=== PATIENT | male | born 1990 | race African-American/Black ===

== ENCOUNTER 2016-09-08 20:40 | Emergency (ER) | payer OTHER ==
[2016-09-08 20:48] VITALS: BP 148/77; PULSE 99; TEMP 98.5; BMI 27.1
--- NOTE | 2016-09-08 21:36 | PDOC ---
History of Present Illness - General Chief Complaint: RX Refill Stated Complaint: RX REFILL Time Seen by Provider: 09/08/16 21:19 History Source: Patient Exam Limitations: No Limitations - History of Present Illness Initial Comments: 09/08/16 21:31 26 yr male with c/o "I ran out of my BP meds for 3 days recently moved from [facility]". Pt denies headache or dizzyness or chest pain . Past History - Past Medical History Allergies/Adverse Reactions: Allergies Allergy/AdvReac Type Severity Reaction Status Date / Time No Known Allergies Allergy Verified 09/08/16 20:45 Home Medications: Ambulatory Orders Amlodipine Besylate 10 mg PO DAILY #14 tablet 09/08/16 Amlodipine/Atorvastatin [Amlodipine-Atorvast 10-10 mg] 10 mg PO ASDIR 09/08/16 Hydralazine HCl 10 mg PO ASDIR 09/08/16 Hydralazine HCl 10 mg PO DAILY #14 tablet 09/08/16 Asthma: Yes Diabetes: Yes HTN: Yes Other medical history: sickle cell trait - Psycho/Social/Smoking Cessation Hx Suicidal Ideation: No Smoking Status: Yes Smoking History: Current every day smoker Number of Cigarettes Smoked Daily: 10 Information on smoking cessation initiated: No Review of Systems - Review of Systems Able to Perform ROS?: Yes Is the patient limited Spanish proficient: No Constitutional: No: Symptoms Reported HEENTM: No: Symptoms Reported Respiratory: No: Symptoms reported Cardiac (ROS): No: Symptoms Reported ABD/GI: No: Symptoms Reported : No: Symptoms Reported Musculoskeletal: No: Symptoms Reported Integumentary: No: Symptoms Reported *Physical Exam - Vital Signs Last Vital Signs Temp Pulse Resp BP Pulse Ox 98.5 F 99 H 18 148/77 100 09/08/16 20:45 09/08/16 20:45 09/08/16 20:45 09/08/16 20:45 09/08/16 20:45 - Physical Exam General Appearance: Yes: Nourished, Appropriately Dressed HEENT: positive: EOMI, VALENTE, Normal ENT Inspection, TMs Normal, Pharynx Normal Neck: positive: Supple. negative: Tender Respiratory/Chest: positive: Lungs Clear, Normal Breath Sounds Cardiovascular: positive: Regular Rhythm, Regular Rate Gastrointestinal/Abdominal: positive: Normal Bowel Sounds, Soft Extremity: positive: Normal Inspection, Normal Range of Motion Integumentary: positive: Normal Color, Dry, Warm Neurologic: positive: Fully Oriented, Alert, Normal Mood/Affect, Normal Response , Motor Strength 10/04 Medical Decision Making - Medical Decision Making 09/08/16 22:55 cc: ran out of BP meds for 3 days relocated to the area no headache or dizzyness no deficits or complaints will refill for 14 days pt to follow at [facility] pt understands to make apt tomorrow for follow up 09/08/16 22:57 *DC/Admit/Observation/Transfer Diagnosis at time of Disposition: Medication refill - Discharge Dispostion Disposition: HOME Condition at time of disposition: Good - Prescriptions Prescriptions: Amlodipine Besylate 10 mg PO DAILY #14 tablet Hydralazine HCl 10 mg PO DAILY #14 tablet - Referrals Referrals: [facility] [Provider Group] - Patient Instructions Additional Instructions: call the clinic tomorrow to set up appointment for primary care take your medication every day as directed Return to ER for any worsening symptoms
== END 2016-09-08 21:44 | disposition home or self-care (01) ==
LOC: JERFT 20:40
DX: I10 Essential (primary) hypertension (principal); F17.210 Nicotine dependence, cigarettes, uncomplicated
CPT/HCPCS: 99281-25

== ENCOUNTER 2018-09-15 07:48 | Emergency (ER) | payer OTHER ==
[2018-09-15 07:56] VITALS: BMI 29.2
--- NOTE | 2018-09-15 08:36 | PDOC ---
History of Present Illness - General Chief Complaint: Pain, Acute Stated Complaint: ABD PAIN S/P HERNIA REPAIR Time Seen by Provider: 09/15/18 08:08 History Source: Patient Exam Limitations: No Limitations Past History - Travel Traveled outside of the country in the last 30 days: No Close contact w/someone who was outside of country & ill: No - Past Medical History Allergies/Adverse Reactions: Allergies Allergy/AdvReac Type Severity Reaction Status Date / Time Penicillins Allergy Verified 09/15/18 07:52 Home Medications: Ambulatory Orders NK [No Known Home Medication] 09/15/18 Asthma: Yes COPD: No Diabetes: Yes HTN: Yes - Surgical History Abdominal Surgery: Yes - Immunization History Immunization Up to Date: Yes - Suicide/Smoking/Psychosocial Hx Smoking Status: Yes Smoking History: Current every day smoker Number of Cigarettes Smoked Daily: 10 Information on smoking cessation initiated: No Hx Alcohol Use: No Drug/Substance Use Hx: No Review of Systems - Review of Systems Able to Perform ROS?: Yes Comments:: 09/15/18 08:28 CONSTITUTIONAL: Absent: fever, chills, diaphoresis, generalized weakness, malaise, loss of appetite HEENT: Absent: rhinorrhea, nasal congestion, throat pain, throat swelling, difficulty swallowing, mouth swelling, ear pain, eye pain, visual Changes CARDIOVASCULAR: Absent: chest pain, loss of consciousness, palpitations, irregular heart rate, peripheral edema RESPIRATORY: Absent: cough, shortness of breath, dyspnea with exertion, orthopnea, wheezing, stridor, hemoptysis GASTROINTESTINAL: Present: abdominal pain, nausea Absent: abdominal distension, vomiting, diarrhea , constipation, melena, hematochezia GENITOURINARY: Absent: dysuria, frequency, urgency, hesitancy, hematuria, flank pain, genital pain MUSCULOSKELETAL: Absent: myalgia, arthralgia, joint swelling SKIN: Absent: rash, itching, pallor HEMATOLOGIC/IMMUNOLOGIC: Absent: easy bleeding, easy bruising, lymphadenopathy, frequent infections ENDOCRINE: Absent: unexplained weight gain, unexplained weight loss, heat intolerance, cold intolerance NEUROLOGIC: Absent: headache, focal weakness or paresthesias, dizziness, unsteady gait, seizure, mental status changes, bladder or bowel incontinence PSYCHIATRIC: Absent: anxiety, depression, suicidal or homicidal ideation, hallucinations. Is the patient limited Mohawk proficient: No *Physical Exam - Vital Signs Last Vital Signs Temp Pulse Resp BP Pulse Ox 97.8 F 68 18 128/87 97 09/15/18 07:52 09/15/18 07:52 09/15/18 07:52 09/15/18 07:52 09/15/18 07:52 - Physical Exam Comments: 09/15/18 08:28 GENERAL: Well developed, well nourished. Awake and alert. No acute distress. HEENT: Normocephalic, atraumatic. PERRLA, EOMI. No conjunctival pallor. Sclera are non- icteric. Moist mucous membranes. Oropharynx is clear. NECK: Supple. Full ROM. No JVD. Carotid pulses 2+ and symmetric, without bruits. No thyromegaly. No lymphadenopathy. CARDIOVASCULAR: Regular rate and rhythm. No murmurs, rubs, or gallops. Distal pulses are 2+ and symmetric. PULMONARY: No evidence of respiratory distress. Lungs clear to auscultation bilaterally. No wheezing, rales or rhonchi. ABDOMINAL: TTP of the LLQ, suprapubic area. Discomfort to the LUQ. Soft. Non-distended. No rebound or guarding. No organomegaly. Hyper active bowel sounds. MUSCULOSKELETAL Normal range of motion at all joints. No bony deformities or tenderness. No CVA tenderness. EXTREMITIES: No cyanosis. No clubbing. No edema. No calf tenderness. SKIN: Warm and dry. Normal capillary refill. No rashes. No jaundice. NEUROLOGICAL: Alert, awake, appropriate. Cranial nerves 2-12 intact. No deficits to light touch and temperature in face, upper extremities and lower extremities. No motor deficits in the in face, upper extremities and lower extremities. Normoreflexic in the upper and lower extremities. Normal speech. Toes are down- going bilaterally. Gait is normal without ataxia. PSYCHIATRIC: Cooperative. Good eye contact. Appropriate mood and affect. ED Treatment Course - LABORATORY CBC & Chemistry Diagram: 09/15/18 08:43 09/15/18 08:43 Medical Decision Making - Medical Decision Making 09/15/18 08:40 The patient is a 28-year-old male past medical history of hypertension, hernia repair in 2017 who presents to the emergency department today for lower abdominal pain. He states that he had an inguinal hernia and umbilical hernia repaired back in 2017 with mesh. He states that since the surgery he has had constant pain from the mesh. He states that when he bent over this morning he felt a sharp pain in his lower abdomen prompting him to come to the emergency department for treatment. He also states that recently he has had early satiety with associated nausea. Denies fevers, chills, vomiting, diarrhea, constipation , lightheadedness, weakness and dizziness. A/P: Abdominal pain DDX includes but is not limited to: Inguinal hernia, Mesh pain, diverticulitis, constipation. Less likely SBO On exam patient tender to palpation of the left lower quadrant, suprapubic area with associated discomfort in the left upper quadrant. No palpable hernia felt Given location of tenderness and history of surgery, we will obtain CTAP with IV contrast. Basic labs and urine ordered. IV fluids and IV Tylenol ordered for pain control. 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 CT of the abdomen shows no acute hernia, diverticulitis. No SBO. Incidental finding of a hemangioma on the left liver. Patient notified of results and told to follow up with outpatient GI doctor. Patient does not want any more medication at this time and states that he is going to follow-up with his surgeon today given the pain. I suspect this was due to his mesh Discharge home I discussed the physical exam findings, ancillary test results and final diagnoses with the patient. I answered all of the patient's questions. The patient was satisfied with the care received and felt comfortable with the discharge plan and treatment plan. The Patient agrees to follow up with the primary care physician/specialist within 24-72 hours. Return precautions were given. *DC/Admit/Observation/Transfer Diagnosis at time of Disposition: Abdominal pain Qualifiers: Abdominal location: left lower quadrant Qualified Code(s): R10.32 - Left lower quadrant pain - Discharge Dispostion Disposition: HOME Condition at time of disposition: Stable Decision to Admit order: No - Referrals Referrals: Rojas Delgado MD [Staff Physician] - - Patient Instructions Printed Discharge Instructions: DI for Abdominal Pain-Adult Additional Instructions: You were evaluated for your abdominal pain today Your CT scan did not show a new hernia. You had a hemangioma on your liver. This requires follow up with a software development intern (GI) Please follow up with your surgeon and a GI. A referral has been provided Return to the ED for any new or worsening symptoms - Post Discharge Activity Forms/Work/School Notes: Back to Work
[2018-09-15] MEDS ORDERED: ACETAMINOPHEN 1000 MG/100 ML VIAL (NON FORMULARY) IVPB ONE (08:38)
[2018-09-15] MEDS ORDERED: SODIUM CHLORIDE 1,000 ML IV STA (08:38)
[2018-09-15] MEDS ORDERED: ACETAMINOPHEN INJECTION 100 ML IVPB ONE (08:42)
[2018-09-15 09:08] LABS: BASO % 0.8 % (0-2.0); EOS % 2.7 % (0-4.5); HEMATOCRIT 42.5 % (35.4-49); HEMOGLOBIN 15.3 GM/dL (11.7-16.9); LYMPH % 48.3 % (8-40); MCH 32.5 pg (25.7-33.7); MCHC 36.1 g/dl (32.0-35.9); MEAN CELL VOLUME 90.2 fl (80-96); MEAN PLT VOLUME 8.4 fl (7.5-11.1); MONO % 10.5 % (3.8-10.2); NEUT % 37.7 % (42.8-82.8); PH,URINE 5.5 (5.0-8.0); PLATELET COUNT 229 K/MM3 (134-434); RBC 4.71 M/mm3 (4.00-5.60); RDW 14.5 % (11.9-15.9); URINE APPEARANCE CLEAR; URINE BILIRUBIN 1+ (NEGATIVE); URINE COLOR DK YELLOW; URINE GLUCOSE (UA) NEGATIVE (NEGATIVE); URINE KETONE TRACE (NEGATIVE); URINE LEUK ESTERASE NEGATIVE (NEGATIVE); URINE NITRITE NEGATIVE (NEGATIVE); URINE PROTEIN TRACE (NEGATIVE); WHITE BLOOD COUNT 8.9 K/mm3 (4.0-10.0)
[2018-09-15 09:24] LABS: INR 1.22 (0.83-1.09); PROTHROMBIN TIME (PATIENT) 14.4 SEC (9.7-13.0)
[2018-09-15 09:55] LABS: ALBUMIN 4.1 g/dl (3.4-5.0); ALK PHOS 99 U/L (45-117); ANION GAP 1 MMOL/L (8-16); BILIRUBIN,TOTAL 0.6 mg/dL (0.2-1); BLOOD UREA NITROGEN 18 mg/dL (7-18); CALCIUM 8.9 mg/dL (8.5-10.1); CHLORIDE 107 mmol/L (98-107); CO2 27 mmol/L (21-32); GLUCOSE,RANDOM 85 mg/dL (74-106); POTASSIUM 4.1 mmol/L (3.5-5.1); SGOT/AST 12 U/L (15-37); SGPT/ALT 16 U/L (13-61); SODIUM 135 mmol/L (136-145); TOT PROT 8.2 g/dl (6.4-8.2)
[2018-09-15 12:56] VITALS: BP 120/68; PULSE 65; TEMP 98.1
== END 2018-09-15 12:56 | disposition home or self-care (01) ==
LOC: JER 07:48
PROC: 3E0337Z Introduction of Electrolytic and Water Balance Substance into Peripheral Vein, Percutaneous Approach (ICD-10-PCS; principal; 2018-09-15)
PROC: 3E033NZ Introduction of Analgesics, Hypnotics, Sedatives into Peripheral Vein, Percutaneous Approach (ICD-10-PCS; 2018-09-15)
DX: R10.32 Left lower quadrant pain (principal); I10 Essential (primary) hypertension; E11.9 Type 2 diabetes mellitus without complications; J45.909 Unspecified asthma, uncomplicated; F17.210 Nicotine dependence, cigarettes, uncomplicated
CPT/HCPCS: 36415; 74177-TC; 80053; 81003; 85025; 85610; 99285-25; J0131; J7030

== ENCOUNTER 2019-01-23 16:20 | Emergency (ER) | payer SELFPAY ==
[2019-01-23 16:24] VITALS: TEMP 97.8; BMI 29.9
--- NOTE | 2019-01-23 17:57 | PDOC ---
*Physical Exam - Vital Signs Last Vital Signs Temp Pulse Resp BP Pulse Ox 97.8 F 81 18 137/87 99 01/23/19 16:22 01/23/19 16:22 01/23/19 16:22 01/23/19 16:22 01/23/19 16:22 ED Treatment Course - LABORATORY CBC & Chemistry Diagram: 01/23/19 18:11 01/23/19 18:11 Medical Decision Making - Medical Decision Making 01/23/19 17:57 Mr. Hazel is a 28 yo M presenting to the ER with a complaint of lower extremity edema. Patient has a history of asthma, sickle cell trait, umbilical hernia repair, here with complaint of bilateral leg swelling which he noticed 2 hours ago. 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 No shortness of breath currently. Family history negative for PE/DVT. Pt seen by Midlevel Provider under my direct supervision Ancillary studies reviewed I agree with plan as outlined by Midlevel Provider 01/24/19 00:54 *DC/Admit/Observation/Transfer Diagnosis at time of Disposition: Edema, peripheral - Discharge Dispostion Disposition: HOME Condition at time of disposition: Stable - Referrals Referrals: Rubio Mcclelland MD [Staff Physician] - - Patient Instructions Printed Discharge Instructions: DI for Peripheral Edema -- Bilateral Additional Instructions: Your Discharge Instructions: You must call primary care physician within 24 hours to arrange follow-up. Return to the Emergency Department with any new, persistent or worsening symptoms, for fever, chills, SOB, dizziness or any other concerning changes that may occur. Her legs above the left left heart. List of the primary care doctors include follow-up with. - Post Discharge Activity
[2019-01-23 18:45] LABS: EPI CELLS 5.7 /HPF (0-5/HPF); HYALINE CASTS 85 /lpf (0-8); PH,URINE 7.5 (5.0-8.0); URINE APPEARANCE TURBID; URINE BACTERIA 25.1 /hpf (NEGATIVE); URINE BILIRUBIN NEGATIVE (NEGATIVE); URINE COLOR YELLOW; URINE GLUCOSE (UA) NEGATIVE (NEGATIVE); URINE KETONE NEGATIVE (NEGATIVE); URINE LEUK ESTERASE 1+ (NEGATIVE); URINE NITRITE NEGATIVE (NEGATIVE); URINE PROTEIN NEGATIVE (NEGATIVE); URINE RBC 1 /hpf (0-4); URINE UROBILINOGEN 0.2 mg/dL (0.2-1.0); URINE WBC 6 /hpf (0-5)
[2019-01-23 18:51] LABS: BASO % 0.4 % (0-2.0); EOS % 1.7 % (0-4.5); HEMATOCRIT 41.8 % (35.4-49); HEMOGLOBIN 14.9 GM/dL (11.7-16.9); LYMPH % 45.5 % (8-40); MCH 32.5 pg (25.7-33.7); MCHC 35.7 g/dl (32.0-35.9); MEAN CELL VOLUME 91.1 fl (80-96); MEAN PLT VOLUME 8.8 fl (7.5-11.1); MONO % 8.8 % (3.8-10.2); NEUT % 43.6 % (42.8-82.8); RBC 4.59 M/mm3 (4.00-5.60); RDW 12.6 % (11.9-15.9); WHITE BLOOD COUNT 7.7 K/mm3 (4.0-10.0)
[2019-01-23 18:55] LABS: PLATELET COUNT 188 K/MM3 (134-434)
[2019-01-23 19:08] LABS: ALBUMIN 3.9 g/dl (3.4-5.0); BILIRUBIN,TOTAL 0.7 mg/dL (0.2-1); BLOOD UREA NITROGEN 14.4 mg/dL (7-18); CALCIUM 8.9 mg/dL (8.5-10.1); POTASSIUM 3.9 mmol/L (3.5-5.1); TOT PROT 7.5 g/dl (6.4-8.2)
--- NOTE | 2019-01-23 19:19 | PDOC ---
History of Present Illness - General Chief Complaint: Edema Stated Complaint: SWOLLEN ANKLES BILAT Time Seen by Provider: 01/23/19 17:57 History Source: Patient Exam Limitations: No Limitations - History of Present Illness Initial Comments: 01/23/19 19:16 Patient is a 28-year-old male with history of asthma, sickle cell trait, umbilical hernia repair, here with complaint of bilateral leg swelling which he noticed 2 hours ago after getting out of the shower. States no pain. Notes that for the last 2 days he has been doing a lot of driving from [place] to [place]. 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 States no shortness of breath currently. He has history of asthma and had to use his pump this morning but symptoms went away after use. Family history negative for PE/DVT. Denies chest pain, nausea, vomiting, fever, palpitations. PMHX: as above PSOCHX: (+) vape, (+) 2-3 cig/day, neg etoh, neg drug ALL: PCN - anaphylaxis GENERAL/CONSTITUTIONAL: No fever or chills. No weakness. No weight change. HEAD, EYES, EARS, NOSE AND THROAT: No change in vision. No ear pain or discharge. No sore throat. CARDIOVASCULAR: No chest pain or shortness of breath. RESPIRATORY: (+) cough, wheezing, (-) hemoptysis. GASTROINTESTINAL: No nausea, vomiting, diarrhea or constipation. No rectal bleeding. GENITOURINARY: No dysuria, frequency, or change in urination. MUSCULOSKELETAL: No joint or muscle swelling or pain. No neck or back pain. SKIN AND BREASTS: No rash or easy bruising, (+) edema . NEUROLOGIC: No headache, vertigo, loss of consciousness, or loss of sensation. PSYCHIATRIC: No depression or anxiety. ENDOCRINE: No increased thirst. No abnormal weight change. HEMATOLOGIC/LYMPHATIC: No anemia, easy bleeding, or history of blood clots. ALLERGIC/IMMUNOLOGIC: No hives or skin allergy. No latex allergy. GENERAL: The patient is awake, alert, and fully oriented, in no acute distress. HEAD: Normal with no signs of trauma. EYES: Pupils equal, round and reactive to light, extraocular movements intact, sclera anicteric, conjunctiva clear. ENT: Ears normal, nares patent, oropharynx clear without exudates. Moist mucous membranes. NECK: Normal range of motion, supple without lymphadenopathy, JVD, or masses. LUNGS: Breath sounds equal, clear to auscultation bilaterally. No wheezes, and no crackles. HEART: Regular rate and rhythm, normal S1 and S2 without murmur, rub. ABDOMEN: Soft, nontender, normoactive bowel sounds. No guarding, no rebound. No masses. EXTREMITIES: Normal range of motion, (+) 1+ pitting edema b/l lower ext. No clubbing or cyanosis. No cords, erythema, or tenderness. NEUROLOGICAL: Cranial nerves II through XII grossly intact. Normal speech, normal gait. PSYCH: Normal mood, normal affect. SKIN: Warm, Dry, normal turgor, no rashes or lesions noted. Past History - Past Medical History Allergies/Adverse Reactions: Allergies Allergy/AdvReac Type Severity Reaction Status Date / Time Penicillins Allergy Verified 01/23/19 16:24 Home Medications: Ambulatory Orders NK [No Known Home Medication] 09/15/18 Asthma: Yes COPD: No Diabetes: Yes HTN: Yes - Surgical History Abdominal Surgery: Yes - Immunization History Immunization Up to Date: Yes - Suicide/Smoking/Psychosocial Hx Smoking Status: Yes Smoking History: Current every day smoker Number of Cigarettes Smoked Daily: 2 Information on smoking cessation initiated: No Hx Alcohol Use: No Drug/Substance Use Hx: No *Physical Exam - Vital Signs Last Vital Signs Temp Pulse Resp BP Pulse Ox 97.8 F 81 18 137/87 99 01/23/19 16:22 01/23/19 16:22 01/23/19 16:22 01/23/19 16:22 01/23/19 16:22 ED Treatment Course - LABORATORY CBC & Chemistry Diagram: 01/23/19 18:11 01/23/19 18:11 - ADDITIONAL ORDERS Additional order review: Laboratory Results 01/23/19 01/23/19 01/23/19 18:30 18:11 18:11 Sodium 142 Potassium 3.9 Chloride 107 Carbon Dioxide 31 Anion Gap 4 L BUN 14.4 Creatinine 1.0 Est GFR (CKD-EPI)AfAm 116.54 Est GFR (CKD-EPI)NonAf 100.55 Random Glucose 83 Calcium 8.9 Total Bilirubin 0.7 AST 18 ALT 29 Alkaline Phosphatase 72 B-Natriuretic Peptide < 5.0 L Total Protein 7.5 Albumin 3.9 Urine Color Yellow Urine Appearance Turbid Urine pH 7.5 D Ur Specific [place] 1.025 Urine Protein Negative Urine Glucose (UA) Negative Urine Ketones Negative Urine Blood Negative Urine Nitrite Negative Urine Bilirubin Negative Urine Urobilinogen 0.2 Ur Leukocyte Esterase 1+ H Urine WBC (Auto) 6 Urine RBC (Auto) 1 Urine Casts (Auto) 85 U Epithel Cells (Auto) 5.7 Urine Bacteria (Auto) 25.1 01/23/19 18:11 RBC 4.59 MCV 91.1 MCHC 35.7 RDW 12.6 D MPV 8.8 Neutrophils % 43.6 Lymphocytes % 45.5 H Monocytes % 8.8 Eosinophils % 1.7 Basophils % 0.4 - RADIOLOGY Radiology Studies Ordered: Category Date Time Status CHEST PA & LAT [RAD] Stat Radiology 01/23/19 18:17 Taken DUPLEX VASCUL US-2LEGS [US] Stat Ultrasound 01/23/19 18:17 Ordered Medical Decision Making - Medical Decision Making 01/23/19 19:16 Patient is a 28-year-old male with history of asthma, sickle cell trait here with complaint of bilateral leg swelling which he noticed 2 hours ago after getting out of the shower. States no pain. Notes that for the last 2 days he has been doing a lot of driving from [place]. 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 States no shortness of breath currently. He has history of asthma and had to use his pump this morning but symptoms went away after use. Family history negative for PE/DVT. Denies chest pain, nausea, vomiting, fever, palpitations. Symptoms consistent with dependent edema however, r/o DVT since it is a truck manager Bilateral lower extremity doppler, CBC, comp, UA check kidney function reassess 01/23/19 20:08 Chest x-ray is negative. Patient Full Name: TAINA SINGH Patient Accession No: [id number] Patient : [id number] Reason for Exam: LEG SWELLING Referring Physician: Patient Name: SAMANTHA HER THIS IS A PRELIMINARY REPORT FROM [facility]ECTION [facility] EXAM: Bilateral lower extremity venous duplex ultrasound IMAGES: 40 DATE OF EXAM: 2019-01-23 19:08:49 REASON FOR EXAM: Rule out DVT COMPARISON: None. FINDINGS: No evidence for deep venous thrombosis. No Morfin's cyst. THIS DOCUMENT HAS BEEN ELECTRONICALLY SIGNED Charan Woods MD 01/23/2019 20:09 JASWINDER Aguilar Please call [facility] Construction [facility]er [phone]) with questions. INTERPRETING RADIOLOGIST: Charan Woods MD Electronically Signed: Jan 23, 2019 08:11PM EDT I discussed the physical exam findings, ancillary test results and final diagnoses with the patient. I answered all of the patient's questions. The patient was satisfied with the care received and felt comfortable with the discharge plan and treatment plan. The Patient agrees to follow up with the primary care physician within 24-72 hours. *DC/Admit/Observation/Transfer Diagnosis at time of Disposition: Edema, peripheral - Discharge Dispostion Disposition: HOME Condition at time of disposition: Stable - Referrals Referrals: Rubio Mcclelland MD [Staff Physician] - - Patient Instructions Printed Discharge Instructions: DI for Peripheral Edema -- Bilateral Additional Instructions: Your Discharge Instructions: You must call primary care physician within 24 hours to arrange follow-up. Return to the Emergency Department with any new, persistent or worsening symptoms, for fever, chills, SOB, dizziness or any other concerning changes that may occur. Her legs above the left left heart. List of the primary care doctors include follow-up with. - Post Discharge Activity
[2019-01-24 01:16] VITALS: BP 133/84; PULSE 76
== END 2019-01-23 20:29 | disposition home or self-care (01) ==
LOC: JER 16:20
DX: R60.0 Localized edema (principal); J45.909 Unspecified asthma, uncomplicated; I10 Essential (primary) hypertension; E11.9 Type 2 diabetes mellitus without complications; F17.210 Nicotine dependence, cigarettes, uncomplicated
CPT/HCPCS: 36415; 71046-TC-FY; 80053; 81003; 83880; 85025; 93970-TC; 99283-25